=== PATIENT | male | born 2000 | race Caucasian/White ===

== ENCOUNTER 2024-06-03 19:54 | Inpatient (IN) | payer OTHER ==
[~2024-06-03 19:54] MED LIST: Iopamidol-370 76% 500 ML MDV (1 ML CHARGE) ONE
[2024-06-03 20:23] LABS: #Basophils 0.04 10x3/uL (0.0-0.2); %Basophils 0.3 % (0.0-1.0); %Eosinophils 0.3 % (0.0-10.0); %Lymphocytes 8.7 % (21.0-51.0); %Monocytes 5.6 % (0.0-10.0); %Neutrophils 84.9 % (42.0-75.0); Hematocrit 40.2 % (42.0-52.0); Hemoglobin 13.7 g/dL (14.0-18.0); Mean Corpuscular HGB CONC 34.1 g/dL (32.0-36.0); Mean Corpuscular Hemoglobin 29.2 pg (27.0-31.0); Mean Corpuscular Volume 85.7 fL (78.0-98.0); Mean Platelet Volume 9.6 fL (7.4-10.4); Platelet Count 207 10x3/uL (130-400); RBC Distribution Width 12.6 % (11.5-14.5); Red Blood Cell (RBC) Count 4.69 mill/uL (4.70-6.10)
[2024-06-03 20:44] LABS: ALT (SGPT) 15 U/L (8-55); AST (SGOT) 24 U/L (5-34); Albumin 4.2 g/dL (3.5-5.0); Alkaline Phosphatase 78 U/L (40-110); Anion Gap 15 mmol/L (10-20); BUN (Urea Nitrogen) 15 mg/dL (8.9-20.6); Bilirubin, Total 0.4 mg/dL (0.2-1.2); Calc. Creatinine Clearance 0 mL/min (70-130); Calcium 9.5 mg/dL (7.8-10.44); Carbon Dioxide 27 mmol/L (22-29); Chloride 102 mmol/L (98-107); Estimated GFR 115; Globulin 2.8 g/dL (2.4-3.5); Glucose 112 mg/dL (70-105); Potassium 3.9 mmol/L (3.5-5.1); Sodium 140 mmol/L (136-145)
[2024-06-03] MEDS ORDERED: Piperacillin/Tazobactam 4.5 GM VIAL ONE (22:26)
[2024-06-03] MEDS ORDERED: Sodium Chloride 0.9% 100 ML ONE (22:27)
[2024-06-03] MEDS ORDERED: Morphine 4 MG/ML VIAL SLOW IVP PRN (22:36)
[2024-06-03] MEDS ORDERED: Acetaminophen 325 MG TAB PO PRN (22:36)
[2024-06-03 23:28] VITALS: BMI 25.5
[2024-06-03] MEDS: Piperacillin/Tazobactam 3.375 GM in Sodium Chloride 0.9% 100 ML IVPB SCH (23:29)
[2024-06-03] MEDS: Lactated Ringer's 1,000 ML IV SCH (23:59)
[2024-06-04] MEDS: Piperacillin/Tazobactam 3.375 GM in Sodium Chloride 0.9% 100 ML IVPB SCH (01:25)
[2024-06-04] MEDS ORDERED: Meperidine HCl/PF 25 MG/ML VIAL SLOW IVP PRN ×2 (07:42)
[2024-06-04] MEDS ORDERED: Promethazine HCl 25 MG/ML VIAL IM PRN (07:42)
[2024-06-04] MEDS ORDERED: Ondansetron HCl/PF 4 MG/2 ML Vial IVP PRN (07:42)
[2024-06-04] MEDS ORDERED: HYDROmorphone 2 MG/ML VIAL SLOW IVP PRN (07:42)
[2024-06-04] MEDS ORDERED: Bupivacaine 0.25% HCL 30 ML VIAL ONE (07:44)
[2024-06-04] MEDS ORDERED: EPINEPHrine 1 MG/ML VIAL ONE (07:44)
[2024-06-04] MEDS ORDERED: PROPOFOL 20 ML ONE (07:53)
[2024-06-04] MEDS ORDERED: fentaNYL PF 100 MCG/2 ML SYRINGE ONE (07:53)
[2024-06-04] MEDS ORDERED: Midazolam HCl 2 mg/2 ml Vial ONE (07:53)
[2024-06-04] MEDS ORDERED: Rocuronium Bromide 10 MG/ML (10ML VIAL) ONE (07:54)
[2024-06-04] MEDS ORDERED: Dexamethasone 20 MG/5 ML VIAL ONE (07:54)
[2024-06-04] MEDS ORDERED: Ondansetron PF 4 MG/2 ML Vial ONE (07:54)
[2024-06-04] MEDS ORDERED: Lidocaine 1% PF 5 ML VIAL ONE (07:54)
[2024-06-04] MEDS ORDERED: cefOXitin 2 GM VIAL ONE (08:15)
[2024-06-04] MEDS ORDERED: SUGAMMADEX SODIUM 200 MG/2 ML VIAL ONE (08:34)
[2024-06-04] MEDS ORDERED: HYDROmorphone 0.5 MG/0.5 ML SYRINGE ONE (09:01)
[2024-06-04] MEDS ORDERED: fentaNYL 50 mcg/mL 1 mL Vial ONE (09:07)
[2024-06-04] MEDS: HYDROcodone/Acetaminophen 7.5/325 mg Tablet PO PRN (10:38)
[2024-06-04] MEDS: Ondansetron PF 4 MG/2 ML Vial IVP PRN (10:38)
[2024-06-04 12:49] VITALS: BP 110/68; TEMP 97.3
== END 2024-06-04 12:28 | disposition home or self-care (01) | DRG 399 ==
LOC: ERS 19:54 → SURG A 22:14
PROVIDERS: ADMIT Surgery; ATTEND Surgery
PROC: 0DTJ4ZZ Resection of Appendix, Percutaneous Endoscopic Approach (ICD-10-PCS; principal; 2024-06-04)
DX: K35.80 Unspecified acute appendicitis (principal); Z98.890 Other specified postprocedural states; Z79.899 Other long term (current) drug therapy
CPT/HCPCS: 74177; 80053; 83690; 85025; 86141; 88304; 96374; J0171; J0665; J0694; J1100; J2250; J2405; J2543; J2704; J3010; J7120; Q9967